=== PATIENT | female | born 1995 | race Caucasian/White ===

== ENCOUNTER 2016-12-06 09:45 | Emergency (ER) | payer OTHER ==
[2016-12-06 09:54] VITALS: BP 121/85; PULSE 73; RESP 16; TEMP 99.2; O2SAT 98
--- NOTE | 2016-12-06 10:18 | EDPHY ---
H & P HPI/ROS: CHIEF COMPLAINT: Left ear pain and nasal congestion History by patient HISTORY OF PRESENT ILLNESS: 21-year-old woman complains of 1 week of URI symptoms that began with a sore throat and progressed to runny nose, congested nose and sinus pressure. She has also had left ear pain for the past 24 hours. She did have a feeling that she has something stuck in her ear and has been cleaning her ear with Q-tips. She has had a subjective fever at home. There has been no nausea vomiting. She has no difficulty breathing. She has tried some [id number]-dma-[id number] medicines with minimal relief. She thinks she needs antibiotics. REVIEW OF SYSTEMS: As in HPI, and all other systems reviewed and are negative Smoking Status: Never smoked Physical Exam: General Appearance: Alert and no distress. Head: normocephalic, atraumatic, no sinus tenderness Eyes: Pupils equal and round no injection. Ears: TM right clear, left positive erythema and swelling of external canal without drainage, TMs slightly reddened but not bulging and landmarks visible OP: mucus membranes moist, no tonsillar enlargement, no exudates Neck: no meningismus, no cervical nodes, no submandibular nodes Respiratory: Chest is nontender, lungs are clear to auscultation. Cardiac: regular rate and rhythm. Gastrointestinal: Abdomen is soft and nontender, no masses, bowel sounds normal. Musculoskeletal: Neck is supple and nontender. Extremities have full range of motion and are nontender. Skin: No rashes or lesions. Constitutional: Initial Vital Signs Temperature (C) 37.3 C 12/06/16 09:51 Heart Rate 73 12/06/16 09:51 Respiratory Rate 16 12/06/16 09:51 Blood Pressure 121/85 H 12/06/16 09:51 O2 Sat (%) 98 12/06/16 09:51 O2 Delivery Mode Room Air Allergies/Adverse Reactions: No Known Allergies Allergy (Verified 12/06/16 09:54) Home Medications: Medication Instructions Recorded None 03/31/13 Fluticasone Propionate [Flonase 2 sprays NS DAILY #1 spray.susp 12/06/16 Allergy Relief] Neomy Sulf/Polymyx B Sulf/Hc 4 drops OT TID #1 otic.btl 12/06/16 [Cortisporin Otic Suspension] MDM/Departure - [facility] ED Course/Re-evaluation: 21-year-old woman presents with URI symptoms, nasal congestion and left ear pain with exam consistent with left otitis externa. We discussed how systemic antibiotics are not helpful for URI or sinus congestion without significant fever. We discussed other measures such as nasal steroids, nasal washes, pseudoephedrine decongestant and cetirizine antihistamine for allergy like symptoms. Will treat her ear with topical Cortisporin. Patient understands and is agreeable to this plan. - Depart Disposition: Home, Routine, Self-Care Clinical Impression: Upper respiratory infection, acute Unspecified otitis externa, left ear Qualifiers: Otitis externa type: unspecified type Chronicity: acute Qualified Code(s): H60.502 - Unspecified acute noninfective otitis externa, left ear Condition: Good Instructions: Upper Respiratory Infection (ED), Otitis Externa (ED) Additional Instructions: You were seen by Dr. Alyse Ly today. Return for any worsening or new concerns. Use ear drops for your left ear. Do not put anything ear to clean it ever. Continue pseudoephedrine as a decongestant and and try cetirizine (Zyrtec) and use nasal steroids. Prescriptions: Fluticasone Propionate [Flonase Allergy Relief] 2 sprays NS DAILY #1 spray.susp Neomy Sulf/Polymyx B Sulf/Hc [Cortisporin Otic Suspension] 4 drops OT TID #1 otic.btl Referrals: NONE *PRIMARY CARE P,. [Primary Care Provider] - As per Instructions
== END 2016-12-06 10:35 | disposition home or self-care (01) ==
LOC: CED 09:45
DX: J06.9 Acute upper respiratory infection, unspecified (principal); H60.502 Unspecified acute noninfective otitis externa, left ear